=== PATIENT | male | born 1950 | race Caucasian/White ===

== ENCOUNTER 2023-06-24 18:14 | Outpatient (REF) | payer MEDICARE, SELFPAY ==
[2023-06-24 14:51] LABS: Source Nasal/Nares
[2023-06-24 15:53] LABS: COVID-19 PCR Negative (Negative)
== END 2023-06-24 18:15 | disposition home or self-care (01) ==
LOC: LBN 18:14
PROVIDERS: Visit Provider Physician Assistant Medical
DX: J02.9 Acute pharyngitis, unspecified (principal); Z20.822 Contact with and (suspected) exposure to COVID-19
CPT/HCPCS: 87635; 87070